=== PATIENT | female | born 1950 | race Caucasian/White ===

== ENCOUNTER 2021-06-06 12:38 | Observation (INO) | payer MEDICARE, BC ==
[~2021-06-06] VITALS: Ht 160 cm; Wt 81.0 kg
[~2021-06-06 12:38] MED LIST: ASPIRIN E.C. 8181 MG PO; CALCIUM CARBON650 M2 PO; CENTRUM SILVER1 CTB PO; HYDRODIURIL50 MG PO; K-TAB20 PO; L-LYSINE500 M1 PO; MASON NATURAL1200 MG PO; VITAMIND3 5000 PO; ZOCOR 20MG20 MG PO
[2021-06-06 15:05] LABS: CREATININE, serum 0.79 mg/dL (0.57-1.11)
[2021-06-06 15:14] LABS: HEMATOCRIT 42.4 % (37.0-47.0); HEMOGLOBIN 15.1 g/dl (12.5-16.0); MEAN CELL VOLUME 91 fl (80.0-100.0); MEAN CORPUSCULAR HEMOGLOBIN 32 pg (27.0-31.0); MEAN CORPUSCULAR HGB CONC 36 g/dl (33.0-37.0); MEAN PLATELET VOLUME 8.6 fl (7.4-10.4); PLATELET COUNT 389 K/mm3 (130-400); RED BLOOD COUNT 4.68 M/mm3 (4.10-5.30); REDCELL DISTRIBUTION WIDTH-CV 12.7 % (11.5-14.5)
[2021-06-06 15:18] LABS: ALBUMIN 3.6 gm/dL (3.4-4.8); BILIRUBIN,TOTAL 0.5 mg/dL (0.2-1.2); C-REACTIVE PROTEIN 5.18 mg/dL (0.00-0.50); CALCIUM 9.4 mg/dL (8.4-10.2); POTASSIUM 3.2 mmol/L (3.5-4.5)
[2021-06-06] MEDS ORDERED: PREDNISONE10 MG PO (15:50)
[2021-06-06 16:01] VITALS: BP 96/56; PULSE 75; TEMP 98.2
[2021-06-06 19:33] VITALS: BP 116/60; PULSE 70; TEMP 98.2
--- NOTE | 2021-06-06 20:00 | NUR ---
Pt. sitting up in bed at this time. Pt. is A&OX3, assessment complete. IV to lt. ac patent, IV fluids infusing per orders. Pt. denies pain or other needs, call light within reach.
[2021-06-06 21:05] LABS: CLOSTRIDIUM DIFF A/B POS; CLOSTRIDIUM DIFF A/B INTERP Toxigenic C.diff POS
[2021-06-07] VITALS (7 sets, daily range): BP systolic 91–110; BP diastolic 43–59; PULSE 50–68; TEMP 97.5–98.4
[2021-06-07 07:20] LABS: CALCIUM 8.8 mg/dL (8.4-10.2); CREATININE, serum 0.61 mg/dL (0.57-1.11)
[2021-06-07 07:21] LABS: POTASSIUM 2.7 mmol/L (3.5-4.5)
[2021-06-07 07:22] LABS: HEMATOCRIT 38.1 % (37.0-47.0); HEMOGLOBIN 13.4 g/dl (12.5-16.0); MEAN CELL VOLUME 94 fl (80.0-100.0); MEAN CORPUSCULAR HEMOGLOBIN 33 pg (27.0-31.0); MEAN CORPUSCULAR HGB CONC 35 g/dl (33.0-37.0); MEAN PLATELET VOLUME 9.5 fl (7.4-10.4); PLATELET COUNT 362 K/mm3 (130-400); RED BLOOD COUNT 4.05 M/mm3 (4.10-5.30); REDCELL DISTRIBUTION WIDTH-CV 12.7 % (11.5-14.5)
[2021-06-07 08:02] LABS: BAND 5 % (0-10); EOSINOPHIL 1 % (0-4); LYMPHOCYTE 37 % (20.0-51.0); NEUTROPHILS 49 % (42.0-75.2); PLATELET ESTIMATE NORMAL (NORMAL)
--- NOTE | 2021-06-07 09:00 | NUR ---
Pt doing well today, reports she feels much better than when she came in. She is hoping to get to eat solid food today. She reports getting up approximately every 2 hours and has loose stool. Minimal pain complaints, reports as tender. No needs verbalized, will continue to monitor
--- NOTE | 2021-06-07 11:48 | NUR ---
SOFIA met with the patient to discuss discharge plan. The patient lives in [place] with her , Steve (ph#[phone]), and her mother. 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 She states that her son, Osito Taveras, is looking out for her mother while she is here. She reports independence with ADLs and does not have any DME. The patient's PCP is Dr. Gamble in [place] and she receives her medications from [facility]. She reports no difficulties obtaining her meds. The patient does not have a DPOA-HC and she was not interested in completing one at this time. The patient plans to return home with her family upon discharge. No additional needs at this time. *Discharge plan: home with family*
--- NOTE | 2021-06-07 13:52 | NUR ---
Pt tolerated low fiber diet although it did send her to the restroom, she reports same as what it did with the clear liquids. She reported the abd cramping is not as bad though and is tolerable. She continues to drink plenty of liquids. No needs verbalized, fluids intd
--- NOTE | 2021-06-07 21:00 | NUR ---
PT IN BED. IS ALERT AND ORIENTED X4. REPORTS HEMORRHOIDS, WOULD NO LET THIS NURSE SEE THEM. PT HAS SL TO LEFT AC, FLUSHES WELL. HAVING LOOSE STOOLS, DENIES PAIN. POTASSIUM REPLACEMENT PROVIDED FOR K+=3.6.
--- NOTE | 2021-06-07 23:36 | NUR ---
LAST DOSE OF POTASSIUM GIVEN. TAKES ORAL VANCO AT THIS TIME. DENIES NEEDS.
[2021-06-08 03:58] VITALS: BP 99/46; PULSE 58; TEMP 98.1
--- NOTE | 2021-06-08 06:00 | NUR ---
TAKES SCHEDULED AM MED AT THIS TIME.
[2021-06-08 07:04] LABS: HEMATOCRIT 39.4 % (37.0-47.0); HEMOGLOBIN 13.7 g/dl (12.5-16.0); MEAN CELL VOLUME 94 fl (80.0-100.0); MEAN CORPUSCULAR HEMOGLOBIN 33 pg (27.0-31.0); MEAN CORPUSCULAR HGB CONC 35 g/dl (33.0-37.0); MEAN PLATELET VOLUME 9.1 fl (7.4-10.4); PLATELET COUNT 387 K/mm3 (130-400); RED BLOOD COUNT 4.21 M/mm3 (4.10-5.30); REDCELL DISTRIBUTION WIDTH-CV 12.9 % (11.5-14.5)
[2021-06-08 07:09] LABS: CALCIUM 8.5 mg/dL (8.4-10.2); CREATININE, serum 0.63 mg/dL (0.57-1.11); MAGNESIUM 1.9 mg/dL (1.6-2.6); POTASSIUM 3.4 mmol/L (3.5-4.5)
[2021-06-08 07:29] LABS: BAND 1 % (0-10); LYMPHOCYTE 41 % (20.0-51.0); NEUTROPHILS 53 % (42.0-75.2); PLATELET ESTIMATE NORMAL (NORMAL)
--- NOTE | 2021-06-08 08:01 | NUR ---
Pt reports feeling better, not going to the bathroom. She has had breakfast nad has not had to go to the bathroom which she stated prior to she would go right away after eating. 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 No needs verbalized, call light within reach
[2021-06-08 08:02] VITALS: BP 101/54; PULSE 60
[2021-06-08] MEDS ORDERED: VANCOCIN H125 MG/CAP PO (11:53)
--- NOTE | 2021-06-08 12:02 | NUR ---
Reviewed discharge instructions with pt to include follow up appointment and prescription. INT removed from left AC. Pt ride is here, pt ready to be walked out
== END 2021-06-08 12:13 | disposition home or self-care (01) ==
LOC: COL.LAB 12:38 → COL.RAD 13:00 → COL.LAB 13:00 → COL.RAD 15:00 → SURG 15:17
PROVIDERS: Internal Medicine Gastroenterology; ADMIT Surgery
DX: A04.72 Enterocolitis due to Clostridium difficile, not specified as recurrent (principal); R10.9 Unspecified abdominal pain; E78.5 Hyperlipidemia, unspecified; E78.00 Pure hypercholesterolemia, unspecified; D72.829 Elevated white blood cell count, unspecified; K76.0 Fatty (change of) liver, not elsewhere classified; K21.9 Gastro-esophageal reflux disease without esophagitis; E87.6 Hypokalemia; F17.210 Nicotine dependence, cigarettes, uncomplicated; Z85.828 Personal history of other malignant neoplasm of skin; Z79.82 Long term (current) use of aspirin; Z79.899 Other long term (current) drug therapy; Z80.0 Family history of malignant neoplasm of digestive organs; Z80.1 Family history of malignant neoplasm of trachea, bronchus and lung
CPT/HCPCS: G0378; J0696; J7120; Q9967

== ENCOUNTER 2021-06-30 12:45 | Emergency (ER) | payer MEDICARE, BC ==
[~2021-06-30] VITALS: Ht 160 cm; Wt 79.1 kg
[~2021-06-30 12:45] MED LIST changes: +PREDNISONE10 MG PO; +VANCOCIN H125 MG/CAP PO
[2021-06-30 14:12] VITALS: TEMP 98.6
[2021-06-30 15:36] LABS: CLOSTRIDIUM DIFF A/B POS; CLOSTRIDIUM DIFF A/B INTERP Toxigenic C.diff POS
[2021-06-30 15:46] LABS: BASO # 0.1 K/mm3 (0.0-0.2); BASO % 0.3 % (0.0-2.0); EOS # 0.2 K/mm3 (0.0-0.7); EOS % 0.9 % (0-4.0); GRAN # 13.3 K/mm3 (1.4-6.5); GRAN % 69.3 % (42.2-75.2); HEMATOCRIT 44.1 % (37.0-47.0); HEMOGLOBIN 15.1 g/dl (12.5-16.0); LYMPH # 4.1 K/mm3 (1.2-3.4); LYMPH % 21.6 % (20.0-51.0); MEAN CELL VOLUME 93 fl (80.0-100.0); MEAN CORPUSCULAR HEMOGLOBIN 32 pg (27.0-31.0); MEAN CORPUSCULAR HGB CONC 34 g/dl (33.0-37.0); MEAN PLATELET VOLUME 8.8 fl (7.4-10.4); MONO # 1.4 K/mm3 (0.1-0.6); MONO % 7.5 % (1.7-9.3); PLATELET COUNT 323 K/mm3 (130-400); RED BLOOD COUNT 4.73 M/mm3 (4.10-5.30); REDCELL DISTRIBUTION WIDTH-CV 12.3 % (11.5-14.5)
[2021-06-30] MEDS ORDERED: VANCOCIN H125 MG/CAP PO (15:49)
[2021-06-30 16:13] LABS: ALBUMIN 3.8 gm/dL (3.4-4.8); CREATININE, serum 0.72 mg/dL (0.57-1.11); TOTAL PROTEIN 6.4 gm/dL (6.2-8.1)
[2021-06-30 16:15] LABS: POTASSIUM 2.9 mmol/L (3.5-4.5)
[2021-06-30 19:02] VITALS: BP 135/88; PULSE 100
== END 2021-06-30 19:02 | disposition home or self-care (01) ==
LOC: COL.ER 12:45
PROVIDERS: Emergency Medicine; Nurse Practitioner
DX: A04.72 Enterocolitis due to Clostridium difficile, not specified as recurrent (principal); D72.829 Elevated white blood cell count, unspecified; I10 Essential (primary) hypertension; E78.5 Hyperlipidemia, unspecified; Z85.038 Personal history of other malignant neoplasm of large intestine; Z90.710 Acquired absence of both cervix and uterus; Z90.49 Acquired absence of other specified parts of digestive tract; Z79.899 Other long term (current) drug therapy
CPT/HCPCS: J0500; Q9967